=== PATIENT | female | born 1945 | race African-American/Black ===

== ENCOUNTER 2023-08-30 19:32 | Emergency (ER) | payer BC, OTHER ==
[~2023-08-30] VITALS: Ht 170.2 cm; Wt 88.5 kg
[2023-08-30 20:18] LABS: BASOPHILS # (AUTO) 0.1 K/uL (0.0-0.2); EOSINOPHILS # (AUTO) 0.1 K/uL (0.0-0.7); EOSINOPHILS % (AUTO) 1.2 % (0.0-6.0); HEMATOCRIT 38 % (33-45); HEMOGLOBIN 12.4 g/dL (11.5-14.8); LYMPHOCYTES % (AUTO) 32.8 % (20.0-44.0); MEAN CORPUSCULAR HEMOGLOBIN 30 PG (26.0-33.0); MEAN CORPUSCULAR HGB CONC 33 g/dl (31.0-36.0); MEAN CORPUSCULAR VOLUME 91 fL (82-100); MONOCYTES # (AUTO) 0.4 K/uL (0.1-1.30); MONOCYTES % (AUTO) 5.8 % (2.0-12.0); NEUTROPHILS # (AUTO) 3.7 K/uL (1.8-8.9); NEUTROPHILS % (AUTO) 59.2 % (43.0-81.0); PLATELET COUNT (AUTO) 248 K/uL (150-450); RED BLOOD CELL COUNT(AUTO) 4.12 MIL/uL (4.0-5.2); RED CELL DISTRIBUTION WIDTH 14.1 % (11.5-15.0); WHITE BLOOD COUNT (AUTO) 6.2 K/uL (4.3-11.0)
[2023-08-30 20:25] LABS: SITE, VBG Other; VBG BASE EXCESS 1.9 mmol/L (-3-3); VBG COHb 0.5 %; VBG MetHb 0.1 %; VBG O2Hb 48.1 %; VBG OXYGEN SATURATION 48.4 %; VBG PCO2 53.3 mmHg (40-52); VBG PH 7.347 (7.31-7.41); VBG PO2 27.2 mmHg (30-50); VBG TOTAL HEMOGLOBIN 13.4 G/dL (12.0-16.0)
[2023-08-30 20:51] LABS: ALANINE AMINOTRANSFERASE 17 U/L (12-78); ALBUMIN 4.1 g/dL (3.4-5.0); ALKALINE PHOSPHATASE 95 U/L (46-116); ASPARTATE AMINOTRANSFERASE 24 U/L (15-37); BILIRUBIN,DIRECT 0.1 mg/dL (0.0-0.2); BILIRUBIN,TOTAL 0.3 mg/dL (0.2-1.0); CARBON DIOXIDE 32 mmol/L (21-32); CHLORIDE 93 mmol/L (98-107); CREATININE 1.2 mg/dL (0.6-1.3); LIPASE 23 U/L (16-77); POTASSIUM 3.5 mmol/L (3.5-5.1); SODIUM SERUM 132 mmol/L (136-145); TOTAL PROTEIN, SERUM 9.2 g/dL (6.4-8.2); UREA NITROGEN, BLOOD 31 mg/dL (7-18)
[2023-08-30 20:53] LABS: CALCIUM, SERUM 10.3 mg/dL (8.5-10.1); GLUCOSE 454 mg/dL (74-106)
[2023-08-30] MEDS: INSULIN REGULAR, HUMAN 100 UNIT/ML 10 ML VIAL SQ ONE (21:12)
[2023-08-30] MEDS: IV NS 0.9% 1,000 ML BAG IV ONE (21:12)
[2023-08-30 21:40] LABS: APPEARANCE,URINE Clear (CLEAR); BILIRUBIN,URINE Negative (NEGATIVE); COLOR,URINE YELLOW (YELLOW); KETONES,URINE Negative (NEGATIVE); LEUKOCYTE ESTERASE ,URINE Negative (NEGATIVE); NITRITE, URINE Negative (NEGATIVE); PROTEIN,URINE Negative (NEGATIVE); UGLUCOSE >=1000 mg/dL (NEGATIVE); UROBILINOGEN,URINE 0.2 EU/dL (0.2)
[2023-08-30 21:42] LABS: BLOOD, URINE N Ery/uL (NEGATIVE)
[2023-08-30 21:58] LABS: ACETONE, SERUM NEGATIVE (NEGATIVE)
[2023-08-30] MEDS ORDERED: MORPHINE SULFATE INJ 2 MG/ML DISP.SYRIN ONE (23:34)
[2023-08-30] MEDS: MORPHINE SULFATE INJ 2 MG/ML DISP.SYRIN IV ONE (23:34)
[2023-08-30 23:47] VITALS: BP 101/62; TEMP 98.5; O2SAT 98
== END 2023-08-30 23:47 | disposition home or self-care (01) ==
LOC: ER 19:34
DX: R53.1 Weakness (principal); I10 Essential (primary) hypertension; I48.91 Unspecified atrial fibrillation; E11.9 Type 2 diabetes mellitus without complications; Z79.4 Long term (current) use of insulin; Z20.822 Contact with and (suspected) exposure to COVID-19
CPT/HCPCS: 99285; 96374; 71045; 96361; 87426; 93005; 82803 ×2; 85025; 80048; 87086; 82010; 83690; 80076; 83735; 81003; 36415; 84484; 82962; 96372; J1815; J7030; J2270